=== PATIENT | female | born 1995 | race Caucasian/White ===

== ENCOUNTER 2023-04-15 07:36 | Outpatient (CLI) | payer OTHER, SELFPAY ==
[2023-04-15 08:47] LABS: Thyroid Stimulating Hormone 0.617 uIU/mL (0.465-4.680)
[2023-04-18 05:01] LABS: FSH 6.7 mIU/mL (***); Progesterone 0.3 ng/mL (***); Prolactin 11.9 ng/mL (***)
[2023-04-18 11:38] LABS: DHEA-Sulfate 129 mcg/dL (18-391)
[2023-04-19 11:54] LABS: Testosterone Total 38 ng/dL (2-45)
[2023-04-19 19:02] LABS: Anti Mullerian Hormone,Female 22.24 ng/mL (0.69-13.39)
[2023-04-21 22:12] LABS: Estradiol, Ultrasensitive 29 pg/mL
== END 2023-04-15 07:37 | disposition home or self-care (01) ==
LOC: ANHLAB 07:38
PROVIDERS: Visit Provider Obstetrics & Gynecology
DX: N91.1 Secondary amenorrhea (principal)
CPT/HCPCS: 36415; 82627; 82670; 83001; 83498; 84144; 84146; 84403; 84443

== ENCOUNTER 2024-05-13 12:18 | Emergency (ER) | payer OTHER, SELFPAY ==
[2024-05-13 13:54] VITALS: BP 107/83; PULSE 75; RESP 16; TEMP 36.2; O2SAT 100
--- NOTE | 2024-05-13 14:43 | ED_ITS ---
HPI - General Adult General Chief complaint: Eye Problems Stated complaint: sinus inf, possible pink eye Time Seen by Provider: 05/13/24 14:35 Source: patient and RN notes reviewed Mode of arrival: ambulatory Limitations: no limitations History of Present Illness HPI narrative: Patient presents today complaining of a one-week history of nasal congestion, chest congestion, cough. Symptoms improved after 5 days, but have then worsened again. Denies fever or shortness of breath. She has tried DayQuil, NyQuil, Mucinex without much relief. No history of asthma or COPD. She is a nonsmoker. Patient is also complaining of left eye redness x2 days with some matting. She had some clear drainage and photophobia that started today. Related Data Allergies Allergy/AdvReac Type Severity Reaction Status Date / Time No Known Allergies Allergy Unknown none Verified 05/13/24 13:47 Review of Systems Review of Systems: CONSTITUTIONAL: Denies body aches, fever, chills, or sweats. EYES: Denies visual changes.+ left eye redness and matting, photophobia ENT: Denies rhinorrhea, sore throat, or otalgia.+ congestion CARDIOVASCULAR: Denies chest pain, palpitations, or edema. RESPIRATORY: Denies dyspnea.+ cough, chest congestion GASTROINTESTINAL: Denies abdominal pain, nausea, vomiting, or diarrhea. GENITOURINARY: Denies dysuria or hematuria. SKIN: Denies rash, itching, or wounds. MUSCULOSKELETAL: Denies back pain, joint pain, or myalgia. NEUROLOGIC: Denies headache, numbness, tingling, or weakness. PSYCH: Denies depression or anxiety. [facility] Surgical History Surgical History H/O colposcopy with cervical biopsy 2019 History of loop electrosurgical excision procedure (LEEP) 2019 Family History Family History Father Waldenstrom macroglobulinemia Other Breast cancer Social History Social History Smoking status: Never smoker Alcohol intake: current Alcohol use details: soically Substance use: never Substance use type: does not use Lack of Transportation: No Lack of Food: Never True Current Housing: I Have Housing Concerned About Future Housing: No Difficulty Paying Gas/Electric Bills: No Difficulty Paying for Meds: No Currently Unemployed: No Education: Bachelor's Degree Living arrangements: alone Occupation/Education: occupation Additional occupation/education comments: Marketing Gender identity (if verbalized by the patient): Female Sexual Orientation (if Verbalized by the Patient): Straight or Heterosexual Comments At time of signature, I have reviewed and agree with nursing past medical, surgical, social and family history unless otherwise noted. Please see nursing chart for further information. There is no relevant family history pertinent to the presenting complaint Exam Narrative: GENERAL: Mildly ill-appearing, well-nourished, and in no acute distress. HEAD: Normocephalic, atraumatic. EYES: EOMI. PERRL. Left eye: Mild to moderately injected conjunctiva. Mild chemosis. Lids and lashes normal. No active drainage. Right eye normal. ENT: Mucous membranes pink and moist. Nares congested. No rhinorrhea. TMs normal bilaterally. Throat normal. Uvula midline. NECK: Normal AROM. Supple. No lymphadenopathy. CHEST: No respiratory distress. Clear to auscultation. HEART: Regular rate and rhythm. No murmur appreciated. EXTREMITIES: Normal range of motion. No edema. SKIN: Warm, dry, no rash. Capillary refill normal. Normal skin turgor. NEURO: No focal deficits. Alert and oriented x3. Gait steady. PSYCH: Normal affect. No signs of depression or anxiety. Course Course Level of Care: Express Care Visit Vital Signs Vital signs: Vital Signs Temperature 97.2 F L 05/13/24 13:54 Pulse Rate 75 05/13/24 13:54 Respiratory Rate 16 05/13/24 13:54 Blood Pressure 107/83 05/13/24 13:54 Pulse Oximetry 100 05/13/24 13:54 Temperature 97.2 F L 05/13/24 13:54 Pulse Rate 75 05/13/24 13:54 Respiratory Rate 16 05/13/24 13:54 Blood Pressure 107/83 05/13/24 13:54 Pulse Oximetry 100 05/13/24 13:54 Reviewed Medical Decision Making MDM Narrative Medical decision making narrative: Patient will be started on a course of Augmentin for bacterial sinusitis as she does have symptoms of double sickening. She will also have a prescription for Polytrim to start. Symptoms are likely due to viral pick conjunctivitis, but she can start these drops to cover for early bacterial conjunctivitis. Anticipatory guidance given. Differential Diagnosis Differential Diagnosis: URI, sinusitis, rhinitis, conjunctivitis Vital Signs Vital Signs: Vital Signs Temperature 97.2 F L 05/13/24 13:54 Pulse Rate 75 05/13/24 13:54 Respiratory Rate 16 05/13/24 13:54 Blood Pressure 107/83 05/13/24 13:54 Pulse Oximetry 100 05/13/24 13:54 Temperature 97.2 F L 05/13/24 13:54 Pulse Rate 75 05/13/24 13:54 Respiratory Rate 16 05/13/24 13:54 Blood Pressure 107/83 05/13/24 13:54 Pulse Oximetry 100 05/13/24 13:54 Critical Care Time Critical Care Time Critical Care Time: No Discharge Plan Discharge Clinical Impression: Sinusitis Qualifiers: Sinusitis location: unspecified location Chronicity: acute Recurrence: non- recurrent Qualified Code(s): J01.90 - Acute sinusitis, unspecified Conjunctivitis Qualifiers: Conjunctivitis type: unspecified Laterality: left Qualified Code(s): H10.9 - Unspecified conjunctivitis Patient Disposition: Home, Self-Care Condition: Stable Instructions: Antibiotic Form, Sinusitis (ED), Conjunctivitis (ED) Additional Instructions: Please start the Augmentin and take as directed. May continue any [id number] medication that you like for your cough and congestion symptoms. Follow-up with your PCP in 3-4 days if symptoms are not improving. Go to the ER immediately if symptoms worsen to include shortness of breath or chest pain. At this time, your pinkeye may be due to a viral illness, but you may start the eyedrops if you wish, especially if you develop any pus drainage. You may try some different eyedrops instead such as an antihistamine eyedrops like Zaditor for irritation or itching. Your blood pressure was elevated above 120/80 today at Urgent Care. This puts you above the threshold for follow up. Please schedule a followup visit with your personal physician as soon as possible, for further evaluation and treatment. Even blood pressure exceeding 120/80 may indicate pre-hypertension. Patient Language: Azeri Prescriptions: New polymyxin B sulf-trimethoprim 10,000 unit- 1 mg/mL drops 1 drp LEFT EYE QID 7 Days Qty: 10 0RF amoxicillin-pot clavulanate 875-125 mg tablet 1 tablet PO Q12H 7 Days Qty: 14 0RF No Action drospirenone-ethinyl estradiol 3-0.02 mg tablet 1 tablet PO DAILY Qty: 84 3RF Follow-up/Referrals: PHYSICIAN,AGRICULTURAL ENGINEER [Primary Care Provider] - Time of Disposition: 14:49
== END 2024-05-13 14:51 | disposition home or self-care (01) ==
PROVIDERS: Emergency Provider Nurse Practitioner
DX: J01.90 Acute sinusitis, unspecified (principal); H10.9 Unspecified conjunctivitis
CPT/HCPCS: 99213; G0463